=== PATIENT | female | born 1935 | race Caucasian/White ===

== ENCOUNTER → 2016-10-25 | Outpatient (CLI) | payer MEDICARE ==
[~2016-10-25] MED LIST: HYDROCODONE BIT1 T11 PO; LEVOTHYROXINE0.05 M1 PO; NAPROSYN500 MG PO
== END | disposition home or self-care (01) ==
LOC: RAD 15:55
DX: J44.9 Chronic obstructive pulmonary disease, unspecified (principal); J84.10 Pulmonary fibrosis, unspecified; R09.89 Other specified symptoms and signs involving the circulatory and respiratory systems

== ENCOUNTER → 2017-09-13 | Outpatient (CLI) | payer MEDICARE ==
[2017-09-13 14:02] LABS: HEMATOCRIT 26.4 % (37.0-47.0); HEMOGLOBIN 8.8 g/dl (12.0-16.0); MEAN CELL VOLUME 116.8 fl (81.0-99.0); MEAN CORPUSCULAR HGB 38.9 pg (27.0-31.0); MEAN CORPUSCULAR HGB CONC 33.3 g/dl (33.0-37.0); MEAN PLATELET VOLUME 10.8 fl (9.6-12.3); RED BLOOD COUNT 2.26 10*6/uL (4.10-5.10); RED CELL DISTRI WIDTH 20.5 % (0-14.5); WHITE BLOOD COUNT 2.5 10*3/uL (4.8-10.8)
[2017-09-13 14:07] LABS: PLATELET COUNT AUTOMATED 20 10*3/uL (130-400)
[2017-09-13 14:22] LABS: TOTAL CELLS COUNTED 100 #CELLS
[2017-09-13 14:23] LABS: PLATELET SUFFICIENCY LOW (NORMAL)
[2017-09-13 14:24] LABS: OVALOCYTES FEW
[2017-09-13 14:27] LABS: ALBUMIN 3.2 gm/dl (3.1-4.5); BUN 14 mg/dl (7-24); CHLORIDE 106 mmol/L (98-107); POTASSIUM 3.9 mmol/L (3.5-5.1); SODIUM 138 mmol/L (136-145)
[2017-09-13 14:32] LABS: ALKALINE PHOSPHATASE 70 U/L (45-117); CREATININE 0.67 mg/dL (0.55-1.02); LDH 206 U/L (84-246); PHOSPHOROUS 2.7 mg/dL (2.5-4.9); SGOT/AST 20 IU/L (3-35); SGPT/ALT 19 U/L (12-78); TOTAL PROTEIN 7.8 gm/dL (6.4-8.2); URIC ACID 2.2 mg/dL (2.6-6.0)
== END | disposition home or self-care (01) ==
LOC: LAB 13:22
PROVIDERS: Internal Medicine Hematology & Oncology
DX: C92.00 Acute myeloblastic leukemia, not having achieved remission (principal)

== ENCOUNTER → 2017-09-13 | Outpatient (CLI) | payer MEDICARE ==
[2017-09-13 18:10] VITALS: BP 141/60
[2017-09-13 18:30] VITALS: BP 128/61
[2017-09-13 18:40] VITALS: BP 136/61
[2017-09-13 18:50] VITALS: BP 115/58
== END | disposition home or self-care (01) ==
LOC: TRNFUSION 16:40
DX: C92.00 Acute myeloblastic leukemia, not having achieved remission (principal)

== ENCOUNTER → 2017-09-15 | Outpatient (CLI) | payer MEDICARE ==
[~2017-09-15] MED LIST changes: +ACYCLOVIR200 MG PO; +VENCLEXTA STAR1 EACH PO
[2017-09-15 11:24] LABS: HEMATOCRIT 25.8 % (37.0-47.0); HEMOGLOBIN 8.4 g/dl (12.0-16.0); MEAN CELL VOLUME 118.9 fl (81.0-99.0); MEAN CORPUSCULAR HGB 38.7 pg (27.0-31.0); MEAN CORPUSCULAR HGB CONC 32.6 g/dl (33.0-37.0); MEAN PLATELET VOLUME 9.8 fl (9.6-12.3); PLATELET COUNT AUTOMATED 55 10*3/uL (130-400); RED BLOOD COUNT 2.17 10*6/uL (4.10-5.10); WHITE BLOOD COUNT 2.2 10*3/uL (4.8-10.8)
[2017-09-15 11:53] LABS: TOTAL CELLS COUNTED 100 #CELLS
[2017-09-15 11:55] LABS: OVALOCYTES FEW; PLATELET SUFFICIENCY LOW (NORMAL)
[2017-09-15 11:57] LABS: ALBUMIN 3.3 gm/dl (3.1-4.5); ALKALINE PHOSPHATASE 69 U/L (45-117); BUN 16 mg/dl (7-24); CHLORIDE 107 mmol/L (98-107); CREATININE 0.71 mg/dL (0.55-1.02); LDH 202 U/L (84-246); PHOSPHOROUS 2.4 mg/dL (2.5-4.9); SGOT/AST 16 IU/L (3-35); SGPT/ALT 17 U/L (12-78); SODIUM 139 mmol/L (136-145); TOTAL PROTEIN 7.8 gm/dL (6.4-8.2); URIC ACID 2.5 mg/dL (2.6-6.0)
== END | disposition home or self-care (01) ==
LOC: LAB 10:59
PROVIDERS: Internal Medicine Hematology & Oncology
DX: C92.00 Acute myeloblastic leukemia, not having achieved remission (principal)

== ENCOUNTER → 2017-09-19 | Outpatient (CLI) | payer MEDICARE ==
[2017-09-19] VITALS (7 sets, daily range): BP systolic 120–146; BP diastolic 58–71
== END | disposition home or self-care (01) ==
LOC: TRNFUSION 00:30
DX: C92.00 Acute myeloblastic leukemia, not having achieved remission (principal)

== ENCOUNTER 2017-09-22 11:56 | Emergency (ER) | payer MEDICARE ==
[~2017-09-22] VITALS: Ht 157.4 cm; Wt 67.6 kg
[2017-09-22 13:04] LABS: ACT PARTIAL THROMBO TIME 24.5 SECONDS (20.8-31.5); INTERNATIONAL NORM RATIO 1.1 (2.0-3.5)
[2017-09-22 17:12] LABS: HEMATOCRIT 27.8 % (37.0-47.0); HEMOGLOBIN 9.5 g/dl (12.0-16.0); MEAN CELL VOLUME 106.5 fl (81.0-99.0); MEAN CORPUSCULAR HGB 36.4 pg (27.0-31.0); MEAN CORPUSCULAR HGB CONC 34.2 g/dl (33.0-37.0); MEAN PLATELET VOLUME 9.4 fl (9.6-12.3); RED BLOOD COUNT 2.61 10*6/uL (4.10-5.10); RED CELL DISTRI WIDTH 18.7 % (0-14.5)
[2017-09-22 17:28] LABS: PLATELET COUNT AUTOMATED 83 10*3/uL (130-400); WHITE BLOOD COUNT 1.5 10*3/uL (4.8-10.8)
[2017-09-22 17:30] LABS: ALBUMIN 3.3 gm/dl (3.1-4.5); ALKALINE PHOSPHATASE 70 U/L (45-117); BUN 14 mg/dl (7-24); CHLORIDE 103 mmol/L (98-107); CREATININE 0.65 mg/dL (0.55-1.02); POTASSIUM 4.1 mmol/L (3.5-5.1); SGOT/AST 14 IU/L (3-35); SGPT/ALT 21 U/L (12-78); SODIUM 137 mmol/L (136-145); TOTAL PROTEIN 7.5 gm/dL (6.4-8.2)
[2017-09-22 17:36] LABS: ATYPICAL LYMPHS 2 % (0-0); PLATELET SUFFICIENCY LOW (NORMAL); TOTAL CELLS COUNTED 100 #CELLS
== END 2017-09-22 18:07 | disposition home or self-care (01) ==
LOC: ED 11:56
PROVIDERS: Student in an Organized Health Care Education/Training Program
DX: C92.00 Acute myeloblastic leukemia, not having achieved remission (principal); D61.818 Other pancytopenia; D69.6 Thrombocytopenia, unspecified; Z79.899 Other long term (current) drug therapy

== ENCOUNTER → 2017-09-29 | Outpatient (CLI) | payer MEDICARE ==
[2017-09-29 09:57] LABS: HEMATOCRIT 28.3 % (37.0-47.0); HEMOGLOBIN 9.2 g/dl (12.0-16.0); MEAN CELL VOLUME 109.7 fl (81.0-99.0); MEAN CORPUSCULAR HGB 35.7 pg (27.0-31.0); MEAN CORPUSCULAR HGB CONC 32.5 g/dl (33.0-37.0); MEAN PLATELET VOLUME 11.1 fl (9.6-12.3); NUCLEATED RED BLOOD CELL 1.3 % (0.0-0.0); PLATELET COUNT AUTOMATED 72 10*3/uL (130-400); RED BLOOD COUNT 2.58 10*6/uL (4.10-5.10); RED CELL DISTRI WIDTH 19.3 % (0-14.5)
[2017-09-29 10:20] LABS: ATYPICAL LYMPHS 2 % (0-0); PLATELET SUFFICIENCY LOW (NORMAL); POLYCHROMASIA SLIGHT; TOTAL CELLS COUNTED 100 #CELLS
[2017-09-29 10:21] LABS: TOXIC GRANULATION SLIGHT
[2017-09-29 10:22] LABS: ROULEAUX SLIGHT
[2017-09-29 10:25] LABS: ALBUMIN 2.8 gm/dl (3.1-4.5); ALKALINE PHOSPHATASE 70 U/L (45-117); BUN 8 mg/dl (7-24); CHLORIDE 103 mmol/L (98-107); CREATININE 0.75 mg/dL (0.55-1.02); LDH 197 U/L (84-246); PHOSPHOROUS 1.4 mg/dL (2.5-4.9); POTASSIUM 4.4 mmol/L (3.5-5.1); SGOT/AST 21 IU/L (3-35); SGPT/ALT 21 U/L (12-78); SODIUM 136 mmol/L (136-145); TOTAL PROTEIN 7.6 gm/dL (6.4-8.2); URIC ACID 1.3 mg/dL (2.6-6.0)
[2017-09-29 10:47] LABS: WHITE BLOOD COUNT 1.6 10*3/uL (4.8-10.8)
== END | disposition home or self-care (01) ==
LOC: LAB 08:45
PROVIDERS: Internal Medicine Hematology & Oncology
DX: C92.00 Acute myeloblastic leukemia, not having achieved remission (principal)

== ENCOUNTER → 2017-11-12 | Outpatient (CLI) | payer MEDICARE ==
[~2017-11-12] MED LIST changes: +ACYCLOVIR400 MG PO; +ALLOPURINOL300 MG PO; +KEFLEX500 M1 PO; -LEVOTHYROXINE0.05 M1 PO; +LEVOTHYROXINE50 MCG PO; +POTASSIUM CHLO20 ME4 PO; +[UNRECOGNIZED DRUG - OTHER]
[2017-11-12 10:20] LABS: HEMATOCRIT 32.2 % (37.0-47.0); HEMOGLOBIN 10.5 g/dl (12.0-16.0); MEAN CELL VOLUME 105.9 fl (81.0-99.0); MEAN CORPUSCULAR HGB 34.5 pg (27.0-31.0); MEAN CORPUSCULAR HGB CONC 32.6 g/dl (33.0-37.0); MEAN PLATELET VOLUME 10.9 fl (9.6-12.3); PLATELET COUNT AUTOMATED 44 10*3/uL (130-400); RED BLOOD COUNT 3.04 10*6/uL (4.10-5.10); RED CELL DISTRI WIDTH 22.5 % (0-14.5)
[2017-11-12 10:54] LABS: ALBUMIN 2.9 gm/dl (3.1-4.5); ALKALINE PHOSPHATASE 82 U/L (45-117); BUN 8 mg/dl (7-24); CHLORIDE 103 mmol/L (98-107); LDH 204 U/L (84-246); PHOSPHOROUS 2.8 mg/dL (2.5-4.9); POTASSIUM 4.1 mmol/L (3.5-5.1); SGOT/AST 19 IU/L (3-35); SGPT/ALT 14 U/L (12-78); SODIUM 138 mmol/L (136-145); TOTAL PROTEIN 7.3 gm/dL (6.4-8.2); URIC ACID 2.8 mg/dL (2.6-6.0)
[2017-11-12 11:31] LABS: PLATELET SUFFICIENCY LOW (NORMAL); TOTAL CELLS COUNTED 100 #CELLS
== END | disposition home or self-care (01) ==
LOC: LAB 04:19
PROVIDERS: Physician Assistant Medical
DX: C92.00 Acute myeloblastic leukemia, not having achieved remission (principal)

== ENCOUNTER → 2017-11-22 | Outpatient (CLI) | payer MEDICARE ==
[2017-11-22 11:58] LABS: HEMATOCRIT 29.4 % (37.0-47.0); HEMOGLOBIN 9.5 g/dl (12.0-16.0); MEAN CELL VOLUME 106.5 fl (81.0-99.0); MEAN CORPUSCULAR HGB 34.4 pg (27.0-31.0); MEAN CORPUSCULAR HGB CONC 32.3 g/dl (33.0-37.0); MEAN PLATELET VOLUME 11.6 fl (9.6-12.3); PLATELET COUNT AUTOMATED 42 10*3/uL (130-400); RED BLOOD COUNT 2.76 10*6/uL (4.10-5.10); RED CELL DISTRI WIDTH 22.3 % (0-14.5); WHITE BLOOD COUNT 3.6 10*3/uL (4.8-10.8)
[2017-11-22 12:11] LABS: ALBUMIN 2.8 gm/dl (3.1-4.5); ALKALINE PHOSPHATASE 74 U/L (45-117); BUN 9 mg/dl (7-24); CHLORIDE 106 mmol/L (98-107); CREATININE 0.59 mg/dL (0.55-1.02); PHOSPHOROUS 2.7 mg/dL (2.5-4.9); POTASSIUM 4.1 mmol/L (3.5-5.1); SGOT/AST 21 IU/L (3-35); SGPT/ALT 12 U/L (12-78); SODIUM 136 mmol/L (136-145); URIC ACID 1.8 mg/dL (2.6-6.0)
[2017-11-22 13:16] LABS: PLATELET SUFFICIENCY LOW (NORMAL); ROULEAUX SLIGHT; TOTAL CELLS COUNTED 100 #CELLS
== END | disposition home or self-care (01) ==
LOC: LAB 00:25
PROVIDERS: Internal Medicine Hematology & Oncology
DX: C92.00 Acute myeloblastic leukemia, not having achieved remission (principal)

== ENCOUNTER → 2017-11-26 | Outpatient (CLI) | payer MEDICARE ==
[~2017-11-26] MED LIST changes: +VENCLEXTA100 MG PO
[2017-11-26 14:34] LABS: HEMATOCRIT 27.9 % (37.0-47.0); HEMOGLOBIN 9.1 g/dl (12.0-16.0); MEAN CELL VOLUME 104.5 fl (81.0-99.0); MEAN CORPUSCULAR HGB 34.1 pg (27.0-31.0); MEAN CORPUSCULAR HGB CONC 32.6 g/dl (33.0-37.0); MEAN PLATELET VOLUME 10.1 fl (9.6-12.3); RED BLOOD COUNT 2.67 10*6/uL (4.10-5.10); RED CELL DISTRI WIDTH 21.8 % (0-14.5); WHITE BLOOD COUNT 3.7 10*3/uL (4.8-10.8)
[2017-11-26 15:00] LABS: ALBUMIN 2.9 gm/dl (3.1-4.5); ALKALINE PHOSPHATASE 72 U/L (45-117); BUN 13 mg/dl (7-24); CHLORIDE 103 mmol/L (98-107); CREATININE 0.68 mg/dL (0.55-1.02); PHOSPHOROUS 3.2 mg/dL (2.5-4.9); POTASSIUM 4.1 mmol/L (3.5-5.1); SGOT/AST 14 IU/L (3-35); SGPT/ALT 12 U/L (12-78); SODIUM 138 mmol/L (136-145); TOTAL PROTEIN 7.4 gm/dL (6.4-8.2); URIC ACID 2.7 mg/dL (2.6-6.0)
[2017-11-26 15:06] LABS: PLATELET SUFFICIENCY LOW (NORMAL); TOTAL CELLS COUNTED 100 #CELLS
[2017-11-26 15:09] LABS: PLATELET COUNT AUTOMATED 11 10*3/uL (130-400)
== END | disposition home or self-care (01) ==
LOC: LAB 04:29
PROVIDERS: Internal Medicine Hematology & Oncology
DX: C92.00 Acute myeloblastic leukemia, not having achieved remission (principal)

== ENCOUNTER → 2017-11-29 | Outpatient (CLI) | payer MEDICARE ==
[~2017-11-29] MED LIST changes: -VENCLEXTA100 MG PO
[2017-11-29 13:39] LABS: HEMATOCRIT 26.2 % (37.0-47.0); HEMOGLOBIN 8.5 g/dl (12.0-16.0); MEAN CELL VOLUME 105.2 fl (81.0-99.0); MEAN CORPUSCULAR HGB 34.1 pg (27.0-31.0); MEAN CORPUSCULAR HGB CONC 32.4 g/dl (33.0-37.0); RED BLOOD COUNT 2.49 10*6/uL (4.10-5.10); RED CELL DISTRI WIDTH 21.5 % (0-14.5); WHITE BLOOD COUNT 4.4 10*3/uL (4.8-10.8)
[2017-11-29 13:59] LABS: ALKALINE PHOSPHATASE 72 U/L (45-117); BUN 11 mg/dl (7-24); CHLORIDE 106 mmol/L (98-107); CREATININE 0.69 mg/dL (0.55-1.02); PHOSPHOROUS 2.6 mg/dL (2.5-4.9); POTASSIUM 4.3 mmol/L (3.5-5.1); SGOT/AST 11 IU/L (3-35); SGPT/ALT 11 U/L (12-78); SODIUM 139 mmol/L (136-145); TOTAL PROTEIN 7.3 gm/dL (6.4-8.2); URIC ACID 2.8 mg/dL (2.6-6.0)
[2017-11-29 14:14] LABS: PLATELET SUFFICIENCY LOW (NORMAL); TOTAL CELLS COUNTED 100 #CELLS
[2017-11-29 14:19] LABS: PLATELET COUNT AUTOMATED 6 10*3/uL (130-400)
== END | disposition home or self-care (01) ==
LOC: LAB 10:22
PROVIDERS: Internal Medicine Hematology & Oncology
DX: R60.0 Localized edema (principal); R41.82 Altered mental status, unspecified

== ENCOUNTER 2017-12-04 12:09 | Inpatient (IN) | payer MEDICARE ==
[~2017-12-04] VITALS: Ht 157.4 cm; Wt 61.4 kg
[~2017-12-04 12:09] MED LIST changes: -ACYCLOVIR400 MG PO; -ALLOPURINOL300 MG PO; -KEFLEX500 M1 PO; -POTASSIUM CHLO20 ME4 PO; -[UNRECOGNIZED DRUG - OTHER]
[2017-12-04 12:14] VITALS: BP 126/55
[2017-12-04 13:06] LABS: HEMATOCRIT 22.2 % (37.0-47.0); HEMOGLOBIN 7.2 g/dl (12.0-16.0); MEAN CELL VOLUME 107.8 fl (81.0-99.0); MEAN CORPUSCULAR HGB CONC 32.4 g/dl (33.0-37.0); MEAN PLATELET VOLUME 12.4 fl (9.6-12.3); RED BLOOD COUNT 2.06 10*6/uL (4.10-5.10); WHITE BLOOD COUNT 2.4 10*3/uL (4.8-10.8)
[2017-12-04 13:08] LABS: PLATELET COUNT AUTOMATED 28 10*3/uL (130-400)
[2017-12-04 13:18] LABS: ALBUMIN 2.9 gm/dl (3.1-4.5); ALKALINE PHOSPHATASE 72 U/L (45-117); BUN 8 mg/dl (7-24); CHLORIDE 105 mmol/L (98-107); CREATININE 0.65 mg/dL (0.55-1.02); POTASSIUM 4.3 mmol/L (3.5-5.1); SGOT/AST 18 IU/L (3-35); SGPT/ALT 9 U/L (12-78); SODIUM 138 mmol/L (136-145); TOTAL PROTEIN 7.3 gm/dL (6.4-8.2)
[2017-12-04 13:25] LABS: TROPONIN I < 0.015 ng/ml (<0.045)
[2017-12-04 13:29] LABS: PLATELET SUFFICIENCY LOW (NORMAL); POLYCHROMASIA SLIGHT; TOTAL CELLS COUNTED 100 #CELLS
[2017-12-04 14:44] VITALS: BP 126/64
[2017-12-04 16:00] VITALS: BP 140/51
[2017-12-04] MEDS ORDERED: ALLOPURINOL300 MG PO (18:00)
[2017-12-04] MEDS ORDERED: POTASSIUM CHLO20 ME4 PO (18:00)
[2017-12-04] MEDS ORDERED: ACYCLOVIR400 MG PO (18:01)
[2017-12-04] MEDS ORDERED: KEFLEX500 M1 PO (18:01)
[2017-12-04] MEDS ORDERED: [UNRECOGNIZED DRUG - OTHER] (18:02)
[2017-12-04 18:23] VITALS: BP 139/54
[2017-12-04 19:06] LABS: BILIRUBIN NEGATIVE (NEGATIVE); BLOOD NEGATIVE (NEGATIVE); CLARITY CLEAR (CLEAR); COLOR YELLOW (YELLOW); GLUCOSE NEGATIVE (NEGATIVE); KETONE NEGATIVE (NEGATIVE); LEUKO ESTERASE NEGATIVE (NEGATIVE); NITRITE NEGATIVE (NEGATIVE); SPECIFIC GRAVITY 1.015 (1.005-1.030)
[2017-12-04 19:25] LABS: BACTERIA TRACE; EPITHELIAL CELLS 45-50
[2017-12-04 19:30] VITALS: BP 145/66
[2017-12-04 20:30] VITALS: BP 150/62
[2017-12-05] VITALS: BP 132/62
[2017-12-05 07:10] LABS: MEAN CORPUSCULAR HGB 33.6 pg (27.0-31.0); MEAN CORPUSCULAR HGB CONC 33.2 g/dl (33.0-37.0); MEAN PLATELET VOLUME 11.7 fl (9.6-12.3); PLATELET COUNT AUTOMATED 30 10*3/uL (130-400); RED BLOOD COUNT 2.98 10*6/uL (4.10-5.10); RED CELL DISTRI WIDTH 20.8 % (0-14.5); WHITE BLOOD COUNT 2.1 10*3/uL (4.8-10.8)
[2017-12-05 07:11] LABS: HEMATOCRIT 30.1 % (37.0-47.0)
[2017-12-05 07:25] LABS: BUN 7 mg/dl (7-24); CHLORIDE 102 mmol/L (98-107); POTASSIUM 3.5 mmol/L (3.5-5.1); SODIUM 137 mmol/L (136-145)
[2017-12-05 07:34] LABS: PLATELET SUFFICIENCY LOW (NORMAL); POLYCHROMASIA SLIGHT; TOTAL CELLS COUNTED 100 #CELLS
[2017-12-05 07:35] LABS: FREE T4 0.99 ng/dl (0.76-1.46)
[2017-12-05 08:00] VITALS: BP 126/56
[2017-12-05] MEDS ORDERED: ALLOPURINOL300 MG PO (09:40)
[2017-12-05 12:00] VITALS: BP 112/58
[2018-02-04] MEDS ORDERED: VENCLEXTA100 MG PO (08:31)
== END 2017-12-05 12:54 | disposition home or self-care (01) | DRG 834 ==
LOC: ED 12:09 → 5E 14:28 → EDHOLD 14:28 → 5E 14:40
PROVIDERS: Emergency Medicine; Internal Medicine Hospice and Palliative Medicine
PROC: 30233N1 Transfusion of Nonautologous Red Blood Cells into Peripheral Vein, Percutaneous Approach (ICD-10-PCS; principal; 2017-12-04)
DX: C92.00 Acute myeloblastic leukemia, not having achieved remission (principal); D61.810 Antineoplastic chemotherapy induced pancytopenia; E44.0 Moderate protein-calorie malnutrition; J84.9 Interstitial pulmonary disease, unspecified; E03.9 Hypothyroidism, unspecified; T45.1X5A Adverse effect of antineoplastic and immunosuppressive drugs, initial encounter; Z79.899 Other long term (current) drug therapy; Y92.89 Other specified places as the place of occurrence of the external cause

== ENCOUNTER → 2017-12-06 | Outpatient (CLI) | payer MEDICARE ==
[~2017-12-06] MED LIST changes: +ACYCLOVIR400 MG PO; +ALLOPURINOL300 MG PO; +KEFLEX500 M1 PO; +POTASSIUM CHLO20 ME4 PO; +[UNRECOGNIZED DRUG - OTHER]
[2017-12-06 12:46] LABS: ALBUMIN 3.1 gm/dl (3.1-4.5); BUN 12 mg/dl (7-24); CHLORIDE 105 mmol/L (98-107); CREATININE 0.77 mg/dL (0.55-1.02); SGOT/AST 14 IU/L (3-35); SGPT/ALT 14 U/L (12-78)
[2017-12-06 12:48] LABS: ALKALINE PHOSPHATASE 78 U/L (45-117)
[2017-12-06 12:52] LABS: POTASSIUM 4.4 mmol/L (3.5-5.1); SODIUM 138 mmol/L (136-145)
[2017-12-06 12:58] LABS: HEMATOCRIT 32.9 % (37.0-47.0); HEMOGLOBIN 10.6 g/dl (12.0-16.0); MEAN CORPUSCULAR HGB 33.5 pg (27.0-31.0); MEAN CORPUSCULAR HGB CONC 32.2 g/dl (33.0-37.0); NUCLEATED RED BLOOD CELL 0.7 % (0.0-0.0); PLATELET COUNT AUTOMATED 31 10*3/uL (130-400); RED BLOOD COUNT 3.16 10*6/uL (4.10-5.10); RED CELL DISTRI WIDTH 21.2 % (0-14.5); WHITE BLOOD COUNT 2.8 10*3/uL (4.8-10.8)
[2017-12-06 12:59] LABS: MEAN CELL VOLUME 104.1 fl (81.0-99.0)
[2017-12-06 13:13] LABS: PLATELET SUFFICIENCY LOW (NORMAL); POLYCHROMASIA SLIGHT; TOTAL CELLS COUNTED 100 #CELLS
== END | disposition home or self-care (01) ==
LOC: LAB 07:40
PROVIDERS: Internal Medicine Hematology & Oncology
DX: C92.00 Acute myeloblastic leukemia, not having achieved remission (principal)

== ENCOUNTER → 2017-12-10 | Outpatient (CLI) | payer MEDICARE ==
[~2017-12-10] MED LIST changes: +VENCLEXTA100 MG PO
[2017-12-10 13:05] LABS: HEMATOCRIT 31.2 % (37.0-47.0); MEAN CELL VOLUME 107.2 fl (81.0-99.0); MEAN CORPUSCULAR HGB 34.4 pg (27.0-31.0); MEAN CORPUSCULAR HGB CONC 32.1 g/dl (33.0-37.0); MEAN PLATELET VOLUME 11.4 fl (9.6-12.3); PLATELET COUNT AUTOMATED 31 10*3/uL (130-400); RED BLOOD COUNT 2.91 10*6/uL (4.10-5.10); RED CELL DISTRI WIDTH 22.5 % (0-14.5); WHITE BLOOD COUNT 3.7 10*3/uL (4.8-10.8)
[2017-12-10 13:29] LABS: PLATELET SUFFICIENCY LOW (NORMAL); POLYCHROMASIA SLIGHT; TOTAL CELLS COUNTED 100 #CELLS
[2017-12-10 13:42] LABS: ALBUMIN 2.9 gm/dl (3.1-4.5); ALKALINE PHOSPHATASE 86 U/L (45-117); BUN 7 mg/dl (7-24); CHLORIDE 105 mmol/L (98-107); CREATININE 0.63 mg/dL (0.55-1.02); PHOSPHOROUS 2.8 mg/dL (2.5-4.9); POTASSIUM 4.1 mmol/L (3.5-5.1); SGOT/AST 16 IU/L (3-35); SGPT/ALT 11 U/L (12-78); SODIUM 138 mmol/L (136-145); TOTAL PROTEIN 7.8 gm/dL (6.4-8.2)
[2017-12-10 13:43] LABS: URIC ACID 3.2 mg/dL (2.6-6.0)
== END | disposition home or self-care (01) ==
LOC: LAB 11:22
PROVIDERS: Internal Medicine Hematology & Oncology
DX: C92.00 Acute myeloblastic leukemia, not having achieved remission (principal)

== ENCOUNTER → 2017-12-20 | Outpatient (CLI) | payer MEDICARE ==
[2017-12-20 11:07] LABS: HEMATOCRIT 27.4 % (37.0-47.0); HEMOGLOBIN 8.8 g/dl (12.0-16.0); MEAN CELL VOLUME 109.2 fl (81.0-99.0); MEAN CORPUSCULAR HGB 35.1 pg (27.0-31.0); MEAN CORPUSCULAR HGB CONC 32.1 g/dl (33.0-37.0); MEAN PLATELET VOLUME 10.5 fl (9.6-12.3); PLATELET COUNT AUTOMATED 36 10*3/uL (130-400); RED BLOOD COUNT 2.51 10*6/uL (4.10-5.10); RED CELL DISTRI WIDTH 22.6 % (0-14.5); WHITE BLOOD COUNT 4.5 10*3/uL (4.8-10.8)
[2017-12-20 11:20] LABS: ALBUMIN 2.7 gm/dl (3.1-4.5); ALKALINE PHOSPHATASE 68 U/L (45-117); BUN 9 mg/dl (7-24); CHLORIDE 106 mmol/L (98-107); CREATININE 0.63 mg/dL (0.55-1.02); PHOSPHOROUS 2.3 mg/dL (2.5-4.9); POTASSIUM 4.2 mmol/L (3.5-5.1); SGOT/AST 20 IU/L (3-35); SGPT/ALT 14 U/L (12-78); SODIUM 138 mmol/L (136-145); URIC ACID 2.8 mg/dL (2.6-6.0)
[2017-12-20 11:27] LABS: PLATELET SUFFICIENCY LOW (NORMAL); TOTAL CELLS COUNTED 100 #CELLS; TOXIC GRANULATION SLIGHT
== END | disposition home or self-care (01) ==
LOC: LAB 01:30
PROVIDERS: Internal Medicine Hematology & Oncology
DX: C92.00 Acute myeloblastic leukemia, not having achieved remission (principal)

== ENCOUNTER → 2017-12-25 | Outpatient (CLI) | payer MEDICARE ==
[2017-12-25 16:45] VITALS: BP 126/55
[2017-12-25 17:15] VITALS: BP 114/54
[2017-12-25 17:45] VITALS: BP 135/38
[2017-12-25 17:59] VITALS: BP 119/51
== END | disposition home or self-care (01) ==
LOC: TRNFUSION 15:00
DX: C92.00 Acute myeloblastic leukemia, not having achieved remission (principal)

== ENCOUNTER → 2017-12-27 | Outpatient (CLI) | payer MEDICARE ==
[2017-12-27 10:30] LABS: HEMATOCRIT 25.4 % (37.0-47.0); HEMOGLOBIN 8.2 g/dl (12.0-16.0); MEAN CELL VOLUME 107.6 fl (81.0-99.0); MEAN CORPUSCULAR HGB 34.7 pg (27.0-31.0); MEAN CORPUSCULAR HGB CONC 32.3 g/dl (33.0-37.0); MEAN PLATELET VOLUME 10.4 fl (9.6-12.3); RED BLOOD COUNT 2.36 10*6/uL (4.10-5.10); RED CELL DISTRI WIDTH 21.7 % (0-14.5); WHITE BLOOD COUNT 4.8 10*3/uL (4.8-10.8)
[2017-12-27 10:39] LABS: ALBUMIN 3.1 gm/dl (3.1-4.5); ALKALINE PHOSPHATASE 71 U/L (45-117); BUN 8 mg/dl (7-24); CHLORIDE 105 mmol/L (98-107); PHOSPHOROUS 2.6 mg/dL (2.5-4.9); POTASSIUM 4.1 mmol/L (3.5-5.1); SGOT/AST 14 IU/L (3-35); SGPT/ALT 15 U/L (12-78); SODIUM 138 mmol/L (136-145); TOTAL PROTEIN 7.7 gm/dL (6.4-8.2); URIC ACID 2.4 mg/dL (2.6-6.0)
[2017-12-27 10:51] LABS: PLATELET SUFFICIENCY LOW (NORMAL); TOTAL CELLS COUNTED 100 #CELLS
[2017-12-27 10:54] LABS: PLATELET COUNT AUTOMATED 21 10*3/uL (130-400)
== END | disposition home or self-care (01) ==
LOC: LAB 08:26
PROVIDERS: Internal Medicine Hematology & Oncology
DX: C92.00 Acute myeloblastic leukemia, not having achieved remission (principal)

== ENCOUNTER → 2018-01-01 | Outpatient (CLI) | payer MEDICARE ==
[2017-12-31 12:11] LABS: HEMATOCRIT 22.6 % (37.0-47.0); HEMOGLOBIN 7.3 g/dl (12.0-16.0); MEAN CELL VOLUME 110.2 fl (81.0-99.0); MEAN CORPUSCULAR HGB 35.6 pg (27.0-31.0); MEAN CORPUSCULAR HGB CONC 32.3 g/dl (33.0-37.0); NUCLEATED RED BLOOD CELL 0.7 % (0.0-0.0); RED BLOOD COUNT 2.05 10*6/uL (4.10-5.10); RED CELL DISTRI WIDTH 22.8 % (0-14.5); WHITE BLOOD COUNT 2.8 10*3/uL (4.8-10.8)
[2017-12-31 12:15] LABS: ALKALINE PHOSPHATASE 68 U/L (45-117); BUN 11 mg/dl (7-24); CHLORIDE 109 mmol/L (98-107); CREATININE 0.64 mg/dL (0.55-1.02); PHOSPHOROUS 2.5 mg/dL (2.5-4.9); POTASSIUM 4.1 mmol/L (3.5-5.1); SGOT/AST 17 IU/L (3-35); SGPT/ALT 15 U/L (12-78); SODIUM 141 mmol/L (136-145); TOTAL PROTEIN 7.2 gm/dL (6.4-8.2); URIC ACID 2.8 mg/dL (2.6-6.0)
[2017-12-31 12:21] LABS: PLATELET SUFFICIENCY LOW (NORMAL); POLYCHROMASIA SLIGHT; ROULEAUX MODERATE; TOTAL CELLS COUNTED 100 #CELLS
[2017-12-31 12:24] LABS: PLATELET COUNT AUTOMATED 13 10*3/uL (130-400)
[2018-01-01] VITALS (9 sets, daily range): BP systolic 113–136; BP diastolic 48–72
[~2018-01-01] MED LIST changes: +K-TAB20 MEQ PO; +LASIX20 MG PO; +VITAMIN D-32000 UNI1 PO
== END | disposition home or self-care (01) ==
LOC: LAB 12-31 03:30 → TRNFUSION 02:37
PROVIDERS: Internal Medicine Hematology & Oncology
DX: D64.9 Anemia, unspecified (principal); E03.9 Hypothyroidism, unspecified

== ENCOUNTER → 2018-01-03 | Outpatient (CLI) | payer MEDICARE ==
[2018-01-03 10:37] LABS: HEMATOCRIT 31.5 % (37.0-47.0); HEMOGLOBIN 10.3 g/dl (12.0-16.0); MEAN CELL VOLUME 102.9 fl (81.0-99.0); MEAN CORPUSCULAR HGB 33.7 pg (27.0-31.0); MEAN CORPUSCULAR HGB CONC 32.7 g/dl (33.0-37.0); MEAN PLATELET VOLUME 10.9 fl (9.6-12.3); PLATELET COUNT AUTOMATED 49 10*3/uL (130-400); RED BLOOD COUNT 3.06 10*6/uL (4.10-5.10); RED CELL DISTRI WIDTH 23.5 % (0-14.5); WHITE BLOOD COUNT 2.4 10*3/uL (4.8-10.8)
[2018-01-03 10:48] LABS: ALKALINE PHOSPHATASE 74 U/L (45-117); BUN 8 mg/dl (7-24); CHLORIDE 107 mmol/L (98-107); CREATININE 0.69 mg/dL (0.55-1.02); PHOSPHOROUS 2.5 mg/dL (2.5-4.9); SGOT/AST 14 IU/L (3-35); SGPT/ALT 15 U/L (12-78); SODIUM 140 mmol/L (136-145); TOTAL PROTEIN 7.4 gm/dL (6.4-8.2); URIC ACID 2.9 mg/dL (2.6-6.0)
[2018-01-03 11:16] LABS: PLATELET SUFFICIENCY LOW (NORMAL); TOTAL CELLS COUNTED 100 #CELLS
== END | disposition home or self-care (01) ==
LOC: LAB 01:25
PROVIDERS: Internal Medicine Hematology & Oncology
DX: C92.00 Acute myeloblastic leukemia, not having achieved remission (principal); E03.9 Hypothyroidism, unspecified; D64.9 Anemia, unspecified

== ENCOUNTER → 2018-01-14 | Outpatient (CLI) | payer MEDICARE ==
[~2018-01-14] MED LIST changes: -K-TAB20 MEQ PO; -LASIX20 MG PO; -VENCLEXTA100 MG PO; -VITAMIN D-32000 UNI1 PO
[2018-01-14 11:51] LABS: ALBUMIN 2.7 gm/dl (3.1-4.5); ALKALINE PHOSPHATASE 71 U/L (45-117); BUN 8 mg/dl (7-24); CHLORIDE 104 mmol/L (98-107); CREATININE 0.66 mg/dL (0.55-1.02); PHOSPHOROUS 2.5 mg/dL (2.5-4.9); POTASSIUM 3.7 mmol/L (3.5-5.1); SGOT/AST 14 IU/L (3-35); SGPT/ALT 10 U/L (12-78); SODIUM 137 mmol/L (136-145); TOTAL PROTEIN 7.5 gm/dL (6.4-8.2)
[2018-01-14 11:52] LABS: HEMATOCRIT 30.4 % (37.0-47.0); HEMOGLOBIN 9.7 g/dl (12.0-16.0); MEAN CELL VOLUME 110.1 fl (81.0-99.0); MEAN CORPUSCULAR HGB 35.1 pg (27.0-31.0); MEAN CORPUSCULAR HGB CONC 31.9 g/dl (33.0-37.0); MEAN PLATELET VOLUME 12.3 fl (9.6-12.3); PLATELET COUNT AUTOMATED 38 10*3/uL (130-400); RED BLOOD COUNT 2.76 10*6/uL (4.10-5.10); RED CELL DISTRI WIDTH 24.5 % (0-14.5)
[2018-01-14 12:11] LABS: PLATELET SUFFICIENCY LOW (NORMAL); POLYCHROMASIA SLIGHT; TOTAL CELLS COUNTED 100 #CELLS
== END | disposition home or self-care (01) ==
LOC: LAB 11:20
PROVIDERS: Internal Medicine Hematology & Oncology
DX: C92.00 Acute myeloblastic leukemia, not having achieved remission (principal)

== ENCOUNTER 2018-01-16 13:34 | Emergency (ER) | payer MEDICARE ==
[~2018-01-16] VITALS: Ht 157.4 cm; Wt 59.0 kg
[2018-01-16 14:27] LABS: HEMATOCRIT 31.3 % (37.0-47.0); MEAN CELL VOLUME 111.4 fl (81.0-99.0); MEAN CORPUSCULAR HGB 35.6 pg (27.0-31.0); MEAN CORPUSCULAR HGB CONC 31.9 g/dl (33.0-37.0); MEAN PLATELET VOLUME 12.1 fl (9.6-12.3); PLATELET COUNT AUTOMATED 45 10*3/uL (130-400); RED BLOOD COUNT 2.81 10*6/uL (4.10-5.10); RED CELL DISTRI WIDTH 24.5 % (0-14.5); WHITE BLOOD COUNT 7.1 10*3/uL (4.8-10.8)
[2018-01-16 14:41] LABS: ALBUMIN 2.9 gm/dl (3.1-4.5); ALKALINE PHOSPHATASE 87 U/L (45-117); BUN 10 mg/dl (7-24); CHLORIDE 103 mmol/L (98-107); CREATININE 0.76 mg/dL (0.55-1.02); POTASSIUM 4.1 mmol/L (3.5-5.1); SGOT/AST 32 IU/L (3-35); SGPT/ALT 23 U/L (12-78); SODIUM 138 mmol/L (136-145); TOTAL PROTEIN 8.1 gm/dL (6.4-8.2)
[2018-01-16 15:02] LABS: PLATELET SUFFICIENCY LOW (NORMAL); TOTAL CELLS COUNTED 100 #CELLS
[2018-01-16 15:03] LABS: POLYCHROMASIA SLIGHT
== END 2018-01-16 16:06 | disposition home or self-care (01) ==
LOC: ED 13:34
PROVIDERS: Nurse Practitioner Family
DX: S66.912A Strain of unspecified muscle, fascia and tendon at wrist and hand level, left hand, initial encounter (principal); W18.30XA Fall on same level, unspecified, initial encounter; Y93.89 Activity, other specified; Y92.091 Bathroom in other non-institutional residence as the place of occurrence of the external cause; Y99.8 Other external cause status

== ENCOUNTER → 2018-01-17 | Outpatient (CLI) | payer MEDICARE ==
[2018-01-17 07:55] LABS: HEMATOCRIT 28.2 % (37.0-47.0); MEAN CELL VOLUME 110.6 fl (81.0-99.0); MEAN CORPUSCULAR HGB 35.3 pg (27.0-31.0); MEAN CORPUSCULAR HGB CONC 31.9 g/dl (33.0-37.0); PLATELET COUNT AUTOMATED 50 10*3/uL (130-400); RED BLOOD COUNT 2.55 10*6/uL (4.10-5.10); RED CELL DISTRI WIDTH 24.2 % (0-14.5); WHITE BLOOD COUNT 5.3 10*3/uL (4.8-10.8)
[2018-01-17 08:22] LABS: ALBUMIN 2.5 gm/dl (3.1-4.5); ALKALINE PHOSPHATASE 74 U/L (45-117); BUN 9 mg/dl (7-24); CHLORIDE 105 mmol/L (98-107); CREATININE 0.54 mg/dL (0.55-1.02); PHOSPHOROUS 2.3 mg/dL (2.5-4.9); POTASSIUM 3.6 mmol/L (3.5-5.1); SGOT/AST 23 IU/L (3-35); SGPT/ALT 19 U/L (12-78); SODIUM 139 mmol/L (136-145); TOTAL PROTEIN 7.3 gm/dL (6.4-8.2); URIC ACID 2.8 mg/dL (2.6-6.0)
[2018-01-17 08:30] LABS: BASOPHILS 1 % (0-1); PLATELET SUFFICIENCY LOW (NORMAL); TOTAL CELLS COUNTED 100 #CELLS
== END | disposition home or self-care (01) ==
LOC: LAB 03:53
PROVIDERS: Internal Medicine Hematology & Oncology
DX: C92.00 Acute myeloblastic leukemia, not having achieved remission (principal)

== ENCOUNTER → 2018-03-21 | Outpatient (CLI) | payer MEDICARE ==
[~2018-03-21] MED LIST changes: +AMINO ACID; +AMINO ACIDS PO; +BISACODYL LAXATI5 MG PO; +ENOXAPARIN60 MG/0.2 SC; +HEPARIN IV; +HYDROCODONE-AC1 EAC1 PO; +K-TAB20 MEQ PO; +LASIX20 MG PO; +Lovenox60 MG/0.6 SC; +MEGACE 40400 MG/10 PO; +MEGACE40 MG PO; +POTASSIUM CHLO10 ME5 PO; +Synthroid,Levo50 MCG PO; +TYLENOL325 M2 PO; +VENCLEXTA100 MG PO; +VIBRAMYCIN100 MG PO; +VITAMIN D-32000 UNI1 PO; +ZINC SULFATE220 MG PO; +ZINC-220220 MG PO; +ZOFRAN 4 MG ED2 TAB PO; +ZOFRAN4 MG PO; +ZYPREXA2.5 MG PO
[2018-03-22] VITALS (9 sets, daily range): BP systolic 103–123; BP diastolic 53–61
== END ==
LOC: TRNFUSION 15:49
DX: C92.00 Acute myeloblastic leukemia, not having achieved remission (principal)

== ENCOUNTER → 2018-03-28 | Outpatient (CLI) | payer MEDICARE ==
[2018-03-28 13:00] VITALS: BP 107/74
[2018-03-28 14:10] VITALS: BP 121/56
== END | disposition home or self-care (01) ==
LOC: TRNFUSION 11:56
DX: C92.00 Acute myeloblastic leukemia, not having achieved remission (principal)

== ENCOUNTER → 2018-04-04 | Outpatient (CLI) | payer MEDICARE ==
[2018-04-04 12:58] VITALS: BP 126/72
[2018-04-04 13:45] VITALS: BP 122/64
== END | disposition home or self-care (01) ==
LOC: TRNFUSION 10:30
DX: D64.9 Anemia, unspecified (principal); C92.00 Acute myeloblastic leukemia, not having achieved remission

== ENCOUNTER 2018-04-13 12:39 | Emergency (ER) | payer MEDICARE ==
[~2018-04-13] VITALS: Ht 157.4 cm; Wt 54.9 kg
[~2018-04-13 12:39] MED LIST changes: -AMINO ACID; -AMINO ACIDS PO; -BISACODYL LAXATI5 MG PO; -ENOXAPARIN60 MG/0.2 SC; -HEPARIN IV; -HYDROCODONE-AC1 EAC1 PO; -Lovenox60 MG/0.6 SC; -MEGACE40 MG PO; -POTASSIUM CHLO10 ME5 PO; -Synthroid,Levo50 MCG PO; -TYLENOL325 M2 PO; -VIBRAMYCIN100 MG PO; -ZINC SULFATE220 MG PO; -ZINC-220220 MG PO; -ZOFRAN 4 MG ED2 TAB PO; -ZOFRAN4 MG PO; -ZYPREXA2.5 MG PO
[2018-04-13] MEDS ORDERED: MEGACE40 MG PO (13:09)
[2018-04-13] MEDS ORDERED: POTASSIUM CHLO10 ME5 PO (13:09)
[2018-04-13] MEDS ORDERED: ZINC SULFATE220 MG PO (13:11)
[2018-04-13] MEDS ORDERED: ZOFRAN4 MG PO (13:12)
[2018-04-13 14:04] LABS: HEMATOCRIT 27.2 % (37.0-47.0); HEMOGLOBIN 8.8 g/dl (12.0-16.0); MEAN CORPUSCULAR HGB 35.9 pg (27.0-31.0); MEAN CORPUSCULAR HGB CONC 32.4 g/dl (33.0-37.0); MEAN PLATELET VOLUME 10.9 fl (9.6-12.3); PLATELET COUNT AUTOMATED 82 10*3/uL (130-400); RED BLOOD COUNT 2.45 10*6/uL (4.10-5.10); RED CELL DISTRI WIDTH 24.6 % (0-14.5); WHITE BLOOD COUNT 7.7 10*3/uL (4.8-10.8)
[2018-04-13 14:11] LABS: BUN 15 mg/dl (7-24); CHLORIDE 110 mmol/L (98-107); CREATININE 0.79 mg/dL (0.55-1.02); POTASSIUM 4.5 mmol/L (3.5-5.1); SODIUM 141 mmol/L (136-145)
[2018-04-13 14:13] LABS: ACT PARTIAL THROMBO TIME 25.9 SECONDS (20.8-31.5); INTERNATIONAL NORM RATIO 1.4 (2.0-3.5)
[2018-04-13 14:28] LABS: POLYCHROMASIA SLIGHT; TOTAL CELLS COUNTED 100 #CELLS
[2018-04-13 14:29] LABS: PLATELET SUFFICIENCY LOW (NORMAL)
== END 2018-04-13 23:49 | disposition short-term general hospital (02) ==
LOC: ED 12:39
PROVIDERS: Emergency Medicine
DX: I82.412 Acute embolism and thrombosis of left femoral vein (principal); D69.6 Thrombocytopenia, unspecified; E03.9 Hypothyroidism, unspecified; M81.0 Age-related osteoporosis without current pathological fracture; I50.32 Chronic diastolic (congestive) heart failure; Z79.899 Other long term (current) drug therapy

== ENCOUNTER 2018-04-30 09:00 | Inpatient (IN) | payer MEDICARE ==
[~2018-04-30] VITALS: Ht 167.6 cm; Wt 53.8 kg
--- NOTE | ~2018-04-30 | EKG ---
[place], [place] ELECTROCARDIOGRAM REPORT NAME: SULTANA BURGESS UNIT #: [id number] ROOM: DOCTOR: JOSEFA DRAFT REPORT BIRTHDATE: [birth year] [facility] Test Date: 2018-04-30 Test Time: 09:21:42 Pat Name: SULTANA BURGESS Department: Room: Gender: F Administrative Office Clerk: : [id number] Requested By: VERONICA SIMMS Order Number: [id number] Reading MD: Measurements Intervals [place] Rate: 105 P: -40 ID: [id number] QRS: -23 QRSD: 79 T: 148 QT: 333 QTc: 441 Interpretive Statements Sinus tachycardia Left atrial enlargement Borderline left axis deviation Abnormal R-wave progression, late transition Nonspecific T abnormalities, lateral leads Compared to ECG 02/15/2018 19:50:32 T-wave abnormality now present Sinus rhythm no longer present Prolonged QT interval no longer present CM:EKGRPT:ELECTROCARDIOGRAM REPORT 0 3 VERONICA DOMINGUEZ DRAFT REPORT VERONICA SIMMS DO
[2018-04-30 09:00] VITALS: BP 125/67
[~2018-04-30 09:00] MED LIST changes: +MEGACE40 MG PO; +POTASSIUM CHLO10 ME5 PO; +ZINC SULFATE220 MG PO; +ZOFRAN4 MG PO
[2018-04-30 09:24] LABS: BILIRUBIN NEGATIVE (NEGATIVE); BLOOD TRACE-LYSED (NEGATIVE); CLARITY CLOUDY (CLEAR); COLOR YELLOW (YELLOW); GLUCOSE NEGATIVE (NEGATIVE); KETONE NEGATIVE (NEGATIVE); LEUKO ESTERASE 2+ (NEGATIVE); NITRITE NEGATIVE (NEGATIVE); SPECIFIC GRAVITY 1.015 (1.005-1.030)
[2018-04-30 09:37] LABS: HEMATOCRIT 36.2 % (37.0-47.0); HEMOGLOBIN 11.3 g/dl (12.0-16.0); MEAN CELL VOLUME 112.8 fl (81.0-99.0); MEAN CORPUSCULAR HGB 35.2 pg (27.0-31.0); MEAN CORPUSCULAR HGB CONC 31.2 g/dl (33.0-37.0); MEAN PLATELET VOLUME 11.8 fl (9.6-12.3); PLATELET COUNT AUTOMATED 64 10*3/uL (130-400); RED BLOOD COUNT 3.21 10*6/uL (4.10-5.10); RED CELL DISTRI WIDTH 23.4 % (0-14.5); WHITE BLOOD COUNT 9.9 10*3/uL (4.8-10.8)
[2018-04-30 09:50] LABS: INTERNATIONAL NORM RATIO 1.4 (2.0-3.5)
[2018-04-30 09:51] LABS: BACTERIA 4+; WBC TNTC wbc/hpf (0-5)
[2018-04-30 09:56] LABS: ALBUMIN 2.6 gm/dl (3.1-4.5); ALKALINE PHOSPHATASE 77 U/L (45-117); BUN 20 mg/dl (7-24); CHLORIDE 107 mmol/L (98-107); CREATININE 0.95 mg/dL (0.55-1.02); LIPASE 102 U/L (73-393); POTASSIUM 4.2 mmol/L (3.5-5.1); SGOT/AST 31 IU/L (3-35); SGPT/ALT 34 U/L (12-78); SODIUM 140 mmol/L (136-145); TOTAL PROTEIN 8.4 gm/dL (6.4-8.2)
[2018-04-30 09:57] LABS: TROPONIN I < 0.015 ng/ml (<0.045)
[2018-04-30] MEDS ORDERED: AMINO ACID (09:57)
[2018-04-30] MEDS ORDERED: LEVOTHYROXINE50 MCG PO (09:58)
[2018-04-30] MEDS ORDERED: Lovenox60 MG/0.6 SC (09:59)
[2018-04-30] MEDS ORDERED: ZINC-220220 MG PO (10:00)
[2018-04-30] MEDS ORDERED: ZOFRAN4 MG PO (10:00)
[2018-04-30] MEDS ORDERED: POTASSIUM CHLO10 ME5 PO (10:00)
[2018-04-30] MEDS ORDERED: ZYPREXA2.5 MG PO (10:01)
[2018-04-30 10:02] LABS: BASOPHILS 1 % (0-1); PLATELET SUFFICIENCY LOW (NORMAL); POLYCHROMASIA SLIGHT; ROULEAUX SLIGHT; TOTAL CELLS COUNTED 100 #CELLS
[2018-04-30 10:23] VITALS: BP 145/81
[2018-04-30 12:15] VITALS: BP 120/62
[2018-04-30] MEDS ORDERED: AMINO ACIDS PO (13:13)
[2018-04-30 16:00] VITALS: BP 118/65
[2018-04-30 20:00] VITALS: BP 110/72
[2018-05-01] VITALS: BP 113/67
[2018-05-01 07:43] LABS: HEMATOCRIT 30.4 % (37.0-47.0); HEMOGLOBIN 9.3 g/dl (12.0-16.0); MEAN CELL VOLUME 114.3 fl (81.0-99.0); MEAN CORPUSCULAR HGB CONC 30.6 g/dl (33.0-37.0); MEAN PLATELET VOLUME 11.7 fl (9.6-12.3); PLATELET COUNT AUTOMATED 49 10*3/uL (130-400); RED BLOOD COUNT 2.66 10*6/uL (4.10-5.10); RED CELL DISTRI WIDTH 23.2 % (0-14.5); WHITE BLOOD COUNT 9.3 10*3/uL (4.8-10.8)
[2018-05-01 07:57] LABS: BUN 13 mg/dl (7-24); CHLORIDE 112 mmol/L (98-107); CREATININE 0.46 mg/dL (0.55-1.02); PHOSPHOROUS 2.2 mg/dL (2.5-4.9); POTASSIUM 3.8 mmol/L (3.5-5.1); SGOT/AST 26 IU/L (3-35); SGPT/ALT 31 U/L (12-78); SODIUM 142 mmol/L (136-145); TOTAL PROTEIN 6.6 gm/dL (6.4-8.2)
[2018-05-01 07:58] LABS: ALKALINE PHOSPHATASE 65 U/L (45-117)
[2018-05-01 08:00] VITALS: BP 132/69
[2018-05-01 08:04] LABS: FREE T4 1.01 ng/dl (0.76-1.46)
[2018-05-01 08:15] LABS: PLATELET SUFFICIENCY LOW (NORMAL); POLYCHROMASIA SLIGHT; TOTAL CELLS COUNTED 100 #CELLS
[2018-05-01 08:32] LABS: VITAMIN D, 25-HYDROXY 24.7 ng/mL (30-100)
[2018-05-01 11:54] VITALS: BP 143/71
[2018-05-01 16:00] VITALS: BP 136/70
[2018-05-01 20:00] VITALS: BP 110/65
[2018-05-02] VITALS: BP 127/70
[2018-05-02 08:00] VITALS: BP 109/46
[2018-05-02 12:00] VITALS: BP 114/58
[2018-05-02 16:00] VITALS: BP 113/69
[2018-05-02 20:00] VITALS: BP 127/69
[2018-05-03] VITALS (9 sets, daily range): BP systolic 99–132; BP diastolic 50–84
[2018-05-03 06:47] LABS: HEMATOCRIT 29.9 % (37.0-47.0); HEMOGLOBIN 9.5 g/dl (12.0-16.0); MEAN CELL VOLUME 112.8 fl (81.0-99.0); MEAN CORPUSCULAR HGB 35.8 pg (27.0-31.0); MEAN CORPUSCULAR HGB CONC 31.8 g/dl (33.0-37.0); MEAN PLATELET VOLUME 11.5 fl (9.6-12.3); PLATELET COUNT AUTOMATED 57 10*3/uL (130-400); RED BLOOD COUNT 2.65 10*6/uL (4.10-5.10); RED CELL DISTRI WIDTH 22.7 % (0-14.5); WHITE BLOOD COUNT 18.3 10*3/uL (4.8-10.8)
[2018-05-03 07:03] LABS: BUN 12 mg/dl (7-24); CHLORIDE 106 mmol/L (98-107); CREATININE 0.59 mg/dL (0.55-1.02); POTASSIUM 3.9 mmol/L (3.5-5.1); SODIUM 139 mmol/L (136-145)
[2018-05-03 07:11] LABS: POLYCHROMASIA SLIGHT; TOTAL CELLS COUNTED 100 #CELLS
[2018-05-03 07:12] LABS: PLATELET SUFFICIENCY LOW (NORMAL)
[2018-05-04] VITALS: BP 118/54
[2018-05-04 06:37] LABS: HEMOGLOBIN 8.2 g/dl (12.0-16.0); MEAN CELL VOLUME 112.1 fl (81.0-99.0); MEAN CORPUSCULAR HGB 35.3 pg (27.0-31.0); MEAN CORPUSCULAR HGB CONC 31.5 g/dl (33.0-37.0); MEAN PLATELET VOLUME 11.4 fl (9.6-12.3); PLATELET COUNT AUTOMATED 54 10*3/uL (130-400); RED BLOOD COUNT 2.32 10*6/uL (4.10-5.10); RED CELL DISTRI WIDTH 22.9 % (0-14.5); WHITE BLOOD COUNT 17.8 10*3/uL (4.8-10.8)
[2018-05-04 07:02] LABS: PLATELET SUFFICIENCY LOW (NORMAL); POLYCHROMASIA SLIGHT; TOTAL CELLS COUNTED 100 #CELLS; TOXIC GRANULATION SLIGHT
[2018-05-04 07:03] LABS: ALBUMIN 1.9 gm/dl (3.1-4.5); BUN 13 mg/dl (7-24); CHLORIDE 108 mmol/L (98-107); CREATININE 0.47 mg/dL (0.55-1.02); PHOSPHOROUS 2.4 mg/dL (2.5-4.9); POTASSIUM 3.1 mmol/L (3.5-5.1); SGOT/AST 22 IU/L (3-35); SGPT/ALT 21 U/L (12-78); SODIUM 138 mmol/L (136-145)
[2018-05-04 07:05] LABS: ALKALINE PHOSPHATASE 78 U/L (45-117)
[2018-05-04 08:00] VITALS: BP 112/60
[2018-05-04 12:00] VITALS: BP 100/55
[2018-05-04 16:00] VITALS: BP 112/52
[2018-05-04 20:00] VITALS: BP 128/54
[2018-05-05] VITALS: BP 119/65
[2018-05-05 06:25] LABS: HEMATOCRIT 25.3 % (37.0-47.0); HEMOGLOBIN 8.1 g/dl (12.0-16.0); MEAN CELL VOLUME 112.4 fl (81.0-99.0); MEAN PLATELET VOLUME 11.8 fl (9.6-12.3); PLATELET COUNT AUTOMATED 54 10*3/uL (130-400); RED BLOOD COUNT 2.25 10*6/uL (4.10-5.10); RED CELL DISTRI WIDTH 22.9 % (0-14.5); WHITE BLOOD COUNT 14.5 10*3/uL (4.8-10.8)
[2018-05-05 06:59] LABS: BUN 11 mg/dl (7-24); CHLORIDE 110 mmol/L (98-107); CREATININE 0.38 mg/dL (0.55-1.02); POTASSIUM 3.1 mmol/L (3.5-5.1); SODIUM 141 mmol/L (136-145)
[2018-05-05 07:12] LABS: PLATELET SUFFICIENCY LOW (NORMAL); POLYCHROMASIA SLIGHT; ROULEAUX SLIGHT; TOTAL CELLS COUNTED 100 #CELLS
[2018-05-05 08:00] VITALS: BP 124/64
[2018-05-05 12:00] VITALS: BP 127/63
[2018-05-05 16:00] VITALS: BP 129/58
[2018-05-05 20:00] VITALS: BP 104/52
[2018-05-06] VITALS: BP 130/61
[2018-05-06 08:00] VITALS: BP 129/70
[2018-05-06 12:00] VITALS: BP 108/54
[2018-05-06 16:00] VITALS: BP 122/71
[2018-05-06 20:00] VITALS: BP 90/50
[2018-05-07] VITALS: BP 92/55
[2018-05-07 08:00] VITALS: BP 120/68
[2018-05-07] MEDS ORDERED: BISACODYL LAXATI5 MG PO (10:28)
[2018-05-07] MEDS ORDERED: ZYPREXA2.5 MG PO (10:28)
[2018-05-07] MEDS ORDERED: ENOXAPARIN60 MG/0.2 SC (10:28)
[2018-05-07] MEDS ORDERED: ZINC SULFATE220 MG PO (10:28)
[2018-05-07] MEDS ORDERED: ZOFRAN 4 MG ED2 TAB PO (10:28)
[2018-05-07] MEDS ORDERED: TYLENOL325 M2 PO (10:28)
[2018-05-07] MEDS ORDERED: HYDROCODONE-AC1 EAC1 PO (10:28)
[2018-05-07] MEDS ORDERED: HEPARIN IV (10:28)
[2018-05-07] MEDS ORDERED: Synthroid,Levo50 MCG PO (10:28)
[2018-05-07] MEDS ORDERED: VIBRAMYCIN100 MG PO (10:29)
[2018-05-07 12:00] VITALS: BP 117/65
== END 2018-05-07 15:00 | DRG 853 ==
LOC: ED 09:00 → 4E 10:33 → EDHOLD 10:33 → 4E 11:01
PROVIDERS: Emergency Medicine; Internal Medicine; Registered Nurse
PROC: 0JB70ZZ Excision of Back Subcutaneous Tissue and Fascia, Open Approach (ICD-10-PCS; principal; 2018-05-03)
DX: A41.9 Sepsis, unspecified organism (principal); L89.154 Pressure ulcer of sacral region, stage 4; G93.41 Metabolic encephalopathy; E43 Unspecified severe protein-calorie malnutrition; C92.00 Acute myeloblastic leukemia, not having achieved remission; I82.402 Acute embolism and thrombosis of unspecified deep veins of left lower extremity; N30.00 Acute cystitis without hematuria; I50.32 Chronic diastolic (congestive) heart failure; Z68.1 Body mass index [BMI] 19.9 or less, adult; E86.0 Dehydration; D53.9 Nutritional anemia, unspecified; D69.6 Thrombocytopenia, unspecified; E83.39 Other disorders of phosphorus metabolism; R73.9 Hyperglycemia, unspecified; B96.20 Unspecified Escherichia coli [E. coli] as the cause of diseases classified elsewhere; E83.41 Hypermagnesemia; B95.2 Enterococcus as the cause of diseases classified elsewhere; E03.9 Hypothyroidism, unspecified; M81.0 Age-related osteoporosis without current pathological fracture; Z87.440 Personal history of urinary (tract) infections; Z83.3 Family history of diabetes mellitus; Z82.49 Family history of ischemic heart disease and other diseases of the circulatory system; Z81.2 Family history of tobacco abuse and dependence; Z92.21 Personal history of antineoplastic chemotherapy; Z79.899 Other long term (current) drug therapy